=== PATIENT | male | born 1970 | race Caucasian/White ===

== ENCOUNTER → 2019-06-23 | Day surgery (SDC) | payer OTHER ==
[~2019-06-23] MED LIST: Acetaminophen TAB* 325 MG PO SCH; Baclofen TAB* 20 MG PO SCH; Bisacodyl SUPP* 10 MG SUPP PR PRN; Buffered Lidocaine 1% SYRIN* 1 ML/SYRINGE INTRADERM ONE; Dexamethasone IV* 4 MG/ML 1 ML (4 MG) IV SLOW PU ONE; Dexamethasone IV* 4 MG/ML 1 ML (4 MG) ONE; Docusate CAP* 100 MG PO SCH; EPHEDrine (Pressors)* 50 MG/ML VIAL ONE; Famotidine IV* 10 MG/ML 2 ML (20 mg) IV ONE; Famotidine IV* 10 MG/ML 2 ML (20 mg) ONE; Glycopyrrolate IV* 0.2 MG/ML 1 ML VIAL ONE; Lactated Ringers 1000 ML Bag* 1,000 ML IV SCH; Lidocaine 2% PF * 5 ML VIAL ONE; Magnesium Hydroxide LIQ* 30 ML UDC PO PRN; Magnesium Hydroxide LIQ* 30 ML UDC PO SCH; Midazolam* 1 MG/ML 2 ML VIAL (2 MG) ONE; Morphine INJ* 2 MG/ML 1 ML SYRINGE (TWO MG - NEW SYRINGE VERSION) IV PRN; Neostigmine Methylsulfate* 3 MG/3 ML SYRINGE ONE; Ondansetron INJ* 2 MG/ML VIAL ONE; Ondansetron ODT TAB* 4 MG PO PRN; Oxybutynin XL TAB* 5 MG PO SCH; Prazosin CAP* 1 MG PO SCH; Propofol* 10 MG/ML 20 ML BTL ONE; Pyridoxine TAB* 50 MG PO SCH; ROPIVACAINE 5 MG/ML 30 ML BTL (0.5%) ONE; Rocuronium* 10 MG/ML VIAL ONE; ceFAZolin 2 GM PREMIX in ORs 2 GM/50 ML BAG ONE; diPHENhydraMINE IV* 50 MG/ML 1 ml VIAL (BENADRYL) IV PRN; diPHENhydraMINE PO* 25 MG PO PRN; fentaNYL* 50 MCG/ML 2 ML VIAL (100 MCG VIAL) ONE; oxyCODONE TAB* 5 MG TAB PO PRN; oxyCODONE/Acetamin 5/325 MG* TAB PO PRN
[2019-06-23 21:20] VITALS: BP 157/87
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
== END | disposition home or self-care (01) ==
LOC: OR 12:25
PROVIDERS: ATTEND Orthopaedic Surgery
DX: S46.011D Strain of muscle(s) and tendon(s) of the rotator cuff of right shoulder, subsequent encounter (principal); M75.41 Impingement syndrome of right shoulder; M75.51 Bursitis of right shoulder; M19.011 Primary osteoarthritis, right shoulder; M24.111 Other articular cartilage disorders, right shoulder; M21.821 Other specified acquired deformities of right upper arm; G82.20 Paraplegia, unspecified; G89.18 Other acute postprocedural pain; X58.XXXD Exposure to other specified factors, subsequent encounter; Y92.9 Unspecified place or not applicable
CPT/HCPCS: C1713; C1776; J0690; J1100; J2250; J2405; J2704; J2710; J2795; J3010